=== PATIENT | female | born 1995 | race African-American/Black ===

== ENCOUNTER 2017-11-30 11:51 | Outpatient (CLI) | payer OTHER ==
[2017-11-30 12:25] LABS: BASOPHILS % (AUTO) 0.9 %; EOSINOPHILS % (AUTO) 0.8 %; HGB - HEMOGLOBIN 12.2 g/dL (12.0-16.0); LYMPHOCYTES # (AUTO) 1.2 10^3/uL (1.5-3.5); LYMPHOCYTES % (AUTO) 34.3 %; MEAN CORPUSCULAR HEMOGLOBIN 23.3 pg (27.0-31.0); MEAN CORPUSCULAR HGB CONC 31.8 g/dL (32.0-36.0); MEAN CORPUSCULAR VOLUME 73.4 fL (81.0-99.0); MEAN PLATELET VOLUME 7.8 fL (7.9-10.8); MONOCYTES # (AUTO) 0.5 10^3/uL (0.0-1.0); MONOCYTES % (AUTO) 14.2 %; NEUTROPHILS # (AUTO) 1.8 10^3/uL (1.5-6.6); NEUTROPHILS % (AUTO) 49.8 %; PLT - PLATELET COUNT 164 10^3/uL (130-450); RED BLOOD COUNT 5.25 10^6/uL (4.20-5.40); WHITE BLOOD COUNT 3.6 x10^3/uL (4.8-10.8)
[2017-11-30 12:39] LABS: HB2 TOTAL 13.5 g/dL; HEMOGLOBIN A1C 0.45 g/dL; HEMOGLOBIN A1C % 5.2 % (4.6-6.2)
== END 2017-11-30 11:52 | disposition home or self-care (01) ==
LOC: LAB 11:51
PROVIDERS: ATTEND Registered Nurse
DX: R63.4 Abnormal weight loss (principal)
CPT/HCPCS: 36415; 82947; 83036; 84443; 85025

== ENCOUNTER 2017-12-15 12:06 | Outpatient (CLI) | payer OTHER ==
--- NOTE | 2017-12-15 19:02 | Ultrasound Report ---
PELVIC ULTRASOUND: 12/15/2017 CLINICAL INDICATION: Pain right adnexa. TECHNIQUE: Transabdominal pelvic ultrasound performed for global evaluation. Transvaginal pelvic ultrasound performed for detailed evaluation. Real-time scanning performed and static images obtained. FINDINGS: The uterus is anteverted, measuring 9.4 x 6.3 x 3.0 cm. The endometrial echo complex measures 6 mm. There is a 1.5 x 1.1 x 0.7 cm anterior subserosal leiomyoma present. Two small echogenic avascular foci are noted within the endometrium, measuring 9 and 7 mm, which may represent tiny endometrial polyps or retained thrombus. The right ovary is unremarkable, measuring 3.3 x 2.0 x 1.3 cm. The left ovary measures 2.7 x 1.8 x 1.3 cm, and demonstrates a possible small dermoid, measuring 8 mm. Trace free fluid is present in the cul-de-sac. IMPRESSION: 1. POSSIBLE SMALL ENDOMETRIAL POLYPS VERSUS RETAINED THROMBUS. 2. POSSIBLE SMALL LEFT OVARIAN DERMOID. 3. SUBSEROSAL LEIOMYOMA. 4. NO EVIDENT ETIOLOGY FOR PATIENT'S RIGHT ADNEXAL PAIN. TD: 12/15/2017 19:01
== END 2017-12-15 12:07 | disposition home or self-care (01) ==
LOC: DI 12:06
PROVIDERS: ATTEND Registered Nurse
DX: N94.9 Unspecified condition associated with female genital organs and menstrual cycle (principal); D25.2 Subserosal leiomyoma of uterus
CPT/HCPCS: 76830; 76856

== ENCOUNTER 2018-04-05 08:00 | Outpatient (CLI) | payer OTHER | END 2018-04-05 08:01 | disposition home or self-care (01) | LOC: LAB.R 08:00 | PROVIDERS: ATTEND Registered Nurse | DX: N76.0 Acute vaginitis (principal) | CPT/HCPCS: 87491; 87591 ==